=== PATIENT | male | born 1965 | race Caucasian/White ===

== ENCOUNTER 2021-09-07 09:42 | Day surgery (SDC) | payer BC ==
[~2021-09-07] VITALS: Ht 190.5 cm; Wt 91.4 kg
[~2021-09-07 09:42] MED LIST: ACYCLOVIR400 MG PO; CO-ENZYME Q101 EACH PO; COLLAGEN PLUS1 EACH PO; COPPER2 M1 PO; COZAAR50 MG PO; D3 + K2 DOTS 11 EACH PO; FISH OIL 1,0001 EAC5 PO; FLONASE ALLERG9.9 ML NS; GARLIC200 MG PO; ICAPS AREDS2 C1 EACH PO; LYSINE1000 MG PO; MILK THISTLE140 M1 PO; MUCUS RELIEF400 MG PO; MULTI VITAMIN1 EACH PO; OSTEO BI-FLEX1 EAC2 PO; SELENIUM100 MCG PO; SPIRULINA MC; VIAGRA50 MG PO; VITAMIN E OIL-V52 M1 TOP; VITAMIN K-1500 MCG SL; ZINC50 M1 PO; [UNRECOGNIZED DRUG - OTHER] MISC
--- NOTE | 2021-09-07 12:51 | NUR ---
09/07/21 1251 Citlaly Morgan 1246-PATIENT ARRIVED TO PACU ON 6L MASK RR EVEN. PATIENT REACTIVE TO VERBAL STIMULI OPENING EYES AND FOLLOWING COMMANDS. PATIENT REPOSITIONED SELF TO BACK. DENIES PAIN OR NAUSEA. ABDOMEN SOFT. IVF INFUSING. SR. 1250-PATIENT PLACED ON RA RR EVEN DENIES PAIN OR NAUSEA. DROWSY DOZES BACK TO SLEEP.
--- NOTE | 2021-09-08 10:08 | OR ---
[facility] [address], [place] [address] Signed DATE OF OPERATION: 09/07/2021 SURGEON: Edgardo Mcgarry MD PREOPERATIVE DIAGNOSES: 1. History of polyps approximately five years ago. 2. History of hemorrhoidal disease with possible prior hemorrhoidal banding. POSTOPERATIVE DIAGNOSES: 1. Scattered diverticula of sigmoid. 2. Mild cecitis. 3. Internal hemorrhoids. PROCEDURES: Total colonoscopy to cecum with biopsy of cecum. ANESTHESIA: Intravenous sedation and propofol infusion; Johan Velasquez CRNA INDICATIONS: This 55-year-old white man is a patient of Diaz Lange, formally Dr. Agusto Edwards. He is referred for surveillance colonoscopy having undergone colonoscopy five and half years ago by Dr. Vaughan showing small polyps. He also has had history of hemorrhoidal disease, for what sounds like bleeding and prolapse and has likely undergone hemorrhoidal banding, though he is not entirely certain. He has no symptoms of bleeding at this time. He is admitted to undergo surveillance colonoscopy regarding polyps, understanding the risks of bleeding, infection, perforation, and other unforeseen complications. FINDINGS: He had an adequate prep. Complete colonoscopy was undertaken to the cecum. There was mild inflammation of the cecum. Biopsies were obtained. He had scattered diverticula of the sigmoid and left colon and prominant internal hemorrhoids, which were not bleeding. DESCRIPTION OF PROCEDURE: The patient was brought to the endoscopy suite and placed in lateral decubitus position, given intravenous sedation with propofol infusional technique. The patient had high tolerance for medications administered that was largely the reason for propofol sedation approach as he did appear to have significant tolerance to sedation. Once sedated, Electronically Signed By: EDGARDO MCGARRY MD 09/08/21 1008 PATIENT NAME: ZELALEM HERNANDEZ OPERATIVE REPORT DATE OF : 61 REPORT #: [id number] PHYSICIAN: EDGARDO MCGARRY MD PCP: DIAZ LANGE PA-C REPORT IS CONFIDENTIAL AND NOT TO BE RELEASED WITHOUT AUTHORIZATION [facility] [address], [place] [address] Signed digital rectal examination was performed, which was normal. An Olympus video colonoscope was passed into the rectum and manipulated throughout the colon noting diverticula of the sigmoid. Scope was ultimately passed to the cecum. Right colon was less well prepped and irrigation was required. Beneath the cecum was erythematous change consistent with mild cystitis. There was no ulceration and no neoplasm. Biopsies were obtained. The scope was then withdrawn and examination throughout showed no sign of abnormality into the sigmoid and left colon, where diverticula were seen. Withdrawal to the rectum allowed for retroflexed view showing rather prominent internal hemorrhoids, but none were bleeding. The scope was then removed. The patient taken to the recovery room in good condition. CONCLUDING DIAGNOSES: 1. No evidence of polyps. 2. Scattered diverticula, mild cecitis. 3. Internal hemorrhoidal disease without active bleeding. PLAN: Recommend a high-fiber diet including supplement of Metamucil one scoop p.o. daily and consideration for hemorrhoidal banding, the bleeding should recur. We would recommend repeat colonoscopy in 10 years per current guidelines, sooner if symptoms should occur. He will return to the ongoing care of SELVIN Goodwin. Edgardo Mcgarry MD JM/MODL /[id number] cc: SELVIN Goodwin Copies: ~ Electronically Signed By: EDGARDO MCGARRY MD 09/08/21 1008 PATIENT NAME: ZELALEM HERNANDEZ OPERATIVE REPORT DATE OF : 61 REPORT #: [id number] PHYSICIAN: EDGARDO MCGARRY MD PCP: DIAZ LANGE PA-C REPORT IS CONFIDENTIAL AND NOT TO BE RELEASED WITHOUT AUTHORIZATION
== END 2021-09-07 13:20 | disposition home or self-care (01) ==
LOC: DS 09:42 → OPS 09:42
PROVIDERS: ATTEND Surgery
PROC: 0DBH8ZZ Excision of Cecum, Via Natural or Artificial Opening Endoscopic (ICD-10-PCS; principal; 2021-09-07 11:00)
DX: K64.2 Third degree hemorrhoids (principal); K52.9 Noninfective gastroenteritis and colitis, unspecified; K57.30 Diverticulosis of large intestine without perforation or abscess without bleeding; M19.90 Unspecified osteoarthritis, unspecified site; I10 Essential (primary) hypertension; R01.1 Cardiac murmur, unspecified; Z86.010 Personal history of colon polyps; Z87.891 Personal history of nicotine dependence
CPT/HCPCS: J2704; J7121

== ENCOUNTER 2024-01-26 05:40 | Day surgery (SDC) | payer BC ==
[~2024-01-26] VITALS: Ht 193 cm; Wt 93.2 kg
[~2024-01-26 05:40] MED LIST changes: +LACTATED RINGER'S 1,000 ML IV SCH
[2024-01-26 06:03] VITALS: BP 144/56
[2024-01-26] MEDS ORDERED: LIDOCAINE HCL 0.5% 50 ML SDV ONE (06:48)
[2024-01-26] MEDS ORDERED: propofoL 200 MG/20 ML VIAL ONE (06:48)
[2024-01-26] MEDS ORDERED: NALOXONE HCL 0.4 MG SYR IV PRN (07:00)
[2024-01-26] MEDS ORDERED: HYDROCODONE/ACETA 5/325 TAB PO PRN (07:00)
[2024-01-26] MEDS ORDERED: CEFAZOLIN SODIUM 2 GM/20 ML SYR IV SCH (07:00)
[2024-01-26] MEDS ORDERED: IBLOOD GLUCOSE TEST STRIP 1 EA TEST VI PRN (07:00)
[2024-01-26] MEDS ORDERED: LIDOCAINE HCL 1% 5 ML SDV INJ ONE (07:00)
[2024-01-26] MEDS ORDERED: HYDROCODON-ACE1 EA10 PO (07:23)
[2024-01-26 07:53] VITALS: BP 136/69
--- NOTE | 2024-01-26 09:47 | NUR ---
01/26/24 0947 Brianna Keller Paco 0720- PT PRESENTS TO PACU, SEMI SCHMIDT POSITION, AWAKE AND ALERT. DRESSING TO RIGHT HAND, CDI. PT REPORTS TINGLING TO HAND, CAP REFILL LESS THAN 3 SECS. PT HAS MODERATE MOVEMENT TO RIGHT ARM. ALL MONITORS IN PLACE. NO SIGNS OF DISTRESS. DENIES PAIN AND NAUSEA. ICE PLACED TO INCISION SITE. 0735- PT ALERT AND ORIENTED. NO SIGNS OF DISTRESS. SITTING UP ON SIDE OF BED, NO PAIN OR NAUSEA. READY TO GET DRESSED. CALLED FOR RIDE HOME. PT DECLINES SOMETHING TO DRINK AT THIS TIME. 0742- PT ALERT AND ORIENTED. NO SIGNS OF DISTRESS. SALINE LOCK REMOVED, TIP INTACT, DRESSING APPLIED. PT DECLINES SLING, HAS GOOD CONTROL OF RIGHT ARM, RIGHT HAND TINGLING, CAP REFILL LESS THAN 3 SECS. VERBALIZED UNDERSTANDING OF INSTRUCTIONS. TRANSFERRED TO WHEEL CHAIR WITHOUT DIFFICULTY, TAKEN OUT TO FAMILY CAR.
--- NOTE | 2024-01-29 10:53 | OR ---
[facility] [address] [place], [place] [address] Signed DATE OF OPERATION: 01/26/2024 SURGEON: Jacobo Gay MD PREOPERATIVE DIAGNOSIS: Carpal tunnel syndrome, right. POSTOPERATIVE DIAGNOSIS: Carpal tunnel syndrome, right. PROCEDURE PERFORMED: Right carpal tunnel release. MOVING PICTURE OPERATOR: None. ANESTHESIA: Cash block. TOURNIQUET TIME: 14 minutes. BRIEF HISTORY: Mani is a 58-year-old gentleman with pain and numbness in his hand. Nerve conduction studies confirmed significant carpal tunnel. Risks and benefits of operative treatment were discussed with him and he elected to proceed. DESCRIPTION OF PROCEDURE: Once consent was obtained, he was taken to the operating room, left on the day surgery bed. Hand table was brought in. After the Cash block was established, the hand was prepped and draped in a standard sterile fashion. The carpal tunnel was approached through a 1.5 cm transverse incision in the distal wrist crease. This was carried through the skin and subcutaneous tissue. The palmaris longus was identified, retracted, and protected. The transverse carpal ligament was then dissected free of overlying soft tissue under loupe magnification. It was dissected proximally and distally. The ligament was then transected approximately a cm and a half and distally to the distal extent. This was done again under loupe magnification. The canal was then palpated using the [place] elevator and found to be completely released. The wound was copiously irrigated with normal saline, closed with 3-0 nylon and injected with 6 mL of 0.25% plain Electronically Signed By: JACOBO GAY MD 01/29/24 1053 PATIENT NAME: MANI HERNANDEZ OPERATIVE REPORT DATE OF : 61 REPORT #: [id number] PHYSICIAN: JACOBO GAY MD PCP: DIAZ CM PA-C REPORT IS CONFIDENTIAL AND NOT TO BE RELEASED WITHOUT AUTHORIZATION [facility] [address] [place], [place] [address] Signed Marcaine. Wound was dressed with bacitracin, Adaptic, 4 x 8s, and gauze. He tolerated the procedure well. All sponge, needle, and instrument counts were correct. Jacobo Gay MD BA/MODL /[id number] Copies: ~ Electronically Signed By: JACOBO GAY MD 01/29/24 1053 PATIENT NAME: MANI HERNANDEZ OPERATIVE REPORT DATE OF : 61 REPORT #: [id number] PHYSICIAN: JACOBO GAY MD PCP: DIAZ CM PA-C REPORT IS CONFIDENTIAL AND NOT TO BE RELEASED WITHOUT AUTHORIZATION
== END 2024-01-26 07:42 | disposition home or self-care (01) ==
LOC: DS 05:40
PROVIDERS: ATTEND Specialist
PROC: 01N50ZZ Release Median Nerve, Open Approach (ICD-10-PCS; principal; 2024-01-26 07:00)
DX: G56.01 Carpal tunnel syndrome, right upper limb (principal); I10 Essential (primary) hypertension
CPT/HCPCS: J0690; J2704; J7121